=== PATIENT | male | born 1950 | race Caucasian/White ===

== ENCOUNTER 2017-08-30 11:53 | Observation (INO) | payer MEDICARE, MEDICAID ==
[~2017-08-30] VITALS: Ht 170.2 cm; Wt 65.0 kg
[2017-08-30] MEDS ORDERED: FEXO180T87 PO (12:08)
[2017-08-30 12:12] VITALS: BP 104/86
[2017-08-30] MEDS ORDERED: SODIUM CHLORIDE 0.9% 1,000 ML IV ONE (12:32)
[2017-08-30 13:00] LABS: CHLORIDE 107 mEq/L (98-107)
[2017-08-30 13:01] LABS: INR 1.1; PROTHROMBIN TIME 11.5 sec (9.4-11.6)
[2017-08-30 13:30] LABS: BASOPHILS % 0.5 % (0.0-2.0); EOSINOPHILS % 0.3 % (0.0-5.0); HEMATOCRIT. 39.2 % (42.0-52.0); LYMPHOCYTES % 13.8 % (20.0-50.0); MEAN CORPUSCULAR HEMOGLOBIN 31.7 pg (28.0-32.0); MEAN CORPUSCULAR VOLUME 89.9 fL (80.0-94.0); MEAN PLATELET VOLUME 7.6 fl (7.4-10.4); MONOCYTES % 6.2 % (2.0-8.0); NEUTROPHILS % 79.2 % (40.0-76.0); PLATELET 216 x1000/uL (130-400); RED BLOOD CELL COUNT 4.35 mill/uL (4.7-6.1); RED CELL DISTRIBUTION WIDTH 14.1 % (11.6-14.6)
[2017-08-30 13:38] LABS: HEMOGLOBIN. 13.8 g/dL (14.0-18.0)
[2017-08-30] MEDS ORDERED: TROPICAMIDE 1% OPHTH DROPS 15ML ONE (14:49)
[2017-08-30] MEDS ORDERED: TETRACAINE 0.5% OPHTH DROPS 4ML ONE (14:49)
[2017-08-30] MEDS ORDERED: PHENYLEPHRINE HCL 2.5% OPHTH DROPS 2ML ONE (14:49)
[2017-08-30] MEDS ORDERED: ACETYLCHOLINE CHLORIDE INTRAOCULAR SOLUTION 1:100 ELECTROLYTE DILUENT IO ONE (14:49)
[2017-08-30] MEDS ORDERED: BALANCED SALT IRRIG SOLN 15ML ONE (14:49)
[2017-08-30] MEDS ORDERED: CARB1TAB5 PO (15:59)
[2017-08-30] MEDS ORDERED: BUDE6.9H INH (15:59)
[2017-08-30] MEDS ORDERED: FLUT9.9S NS (15:59)
[2017-08-30] MEDS ORDERED: TRIH2TAB4 PO (15:59)
[2017-08-30] MEDS ORDERED: FOLI-43 PO (15:59)
[2017-08-30] MEDS ORDERED: RISP1 PO (15:59)
== END 2017-08-30 17:30 ==
LOC: ER 12:59 → ORIP 13:00 → ER 13:24
PROVIDERS: ADMIT Ophthalmology; ATTEND Ophthalmology
DX: H25.11 Age-related nuclear cataract, right eye (principal); R42 Dizziness and giddiness; F20.9 Schizophrenia, unspecified; J44.9 Chronic obstructive pulmonary disease, unspecified; F32.9 Major depressive disorder, single episode, unspecified; F41.9 Anxiety disorder, unspecified; D64.9 Anemia, unspecified; G20 Parkinson's disease
CPT/HCPCS: 36415; 66984; 80053; 83735; 85025; 85610; 93005; 99285; G0378; J3490; J7030; V2632; J1580; J2704; J2920

== ENCOUNTER 2017-11-04 14:57 | Emergency (ER) | payer MEDICAID, MEDICARE ==
[~2017-11-04] VITALS: Ht 162.6 cm; Wt 65.0 kg
[~2017-11-04 14:57] MED LIST: BUDE6.9H INH; CARB1TAB5 PO; FEXO180T87 PO; FLUT9.9S NS; FOLI-43 PO; RISP1 PO; TRIH2TAB4 PO
[2017-11-04] MEDS ORDERED: LORAZEPAM 0.5MG TABLET PO ONE (17:00)
[2017-11-04] MEDS ORDERED: RISPERIDONE 0.5MG TABLET PO SCH (17:00)
[2017-11-04 17:55] LABS: BASOPHILS % 0.7 % (0.0-2.0); HEMATOCRIT. 38.9 % (42.0-52.0); HEMOGLOBIN. 13.9 g/dL (14.0-18.0); LYMPHOCYTES % 17.1 % (20.0-50.0); MEAN CORPUSCULAR HEMOGLOBIN 31.5 pg (28.0-32.0); MEAN PLATELET VOLUME 7.1 fl (7.4-10.4); MONOCYTES % 7.9 % (2.0-8.0); NEUTROPHILS % 73.3 % (40.0-76.0); PLATELET 184 x1000/uL (130-400); RED BLOOD CELL COUNT 4.42 mill/uL (4.7-6.1); RED CELL DISTRIBUTION WIDTH 14.3 % (11.6-14.6)
[2017-11-04 17:57] LABS: CHLORIDE 106 mEq/L (98-107)
[2017-11-04 18:06] LABS: INR 1.1; PROTHROMBIN TIME 11.4 sec (9.4-11.6)
[2017-11-04 22:03] VITALS: BP 141/71
== END 2017-11-04 22:06 | disposition home or self-care (01) ==
LOC: ER 16:55
DX: M94.0 Chondrocostal junction syndrome [Tietze] (principal); E86.0 Dehydration; D72.810 Lymphocytopenia; D64.9 Anemia, unspecified; F41.9 Anxiety disorder, unspecified; F32.9 Major depressive disorder, single episode, unspecified; J44.9 Chronic obstructive pulmonary disease, unspecified; G20 Parkinson's disease; R26.9 Unspecified abnormalities of gait and mobility
CPT/HCPCS: 36415; 71045; 80053; 83036; 83880; 84484; 85025; 85610; 93005; 99285

== ENCOUNTER 2024-06-16 08:02 | Emergency (ER) | payer MEDICARE, MEDICAID ==
[~2024-06-16] VITALS: Ht 182.9 cm; Wt 68.0 kg
[~2024-06-16 08:02] MED LIST changes: +ATOR20TA65 PO; +CARV6.2548 PO; -FEXO180T87 PO; -FLUT9.9S NS; +GLYC30DR4 EACHEYE; +LEVO25TA7 PO; +LORA-250 PO; +LORA2TAB95 PO; +MULT-1223 PO; +PALI234D IM; +SENN-362 PO; +TRIH2TAB3 PO; -TRIH2TAB4 PO
[2024-06-16 08:03] VITALS: BP 143/66; PULSE 63; RESP 18; TEMP 36.8; O2SAT 100
== END 2024-06-16 10:10 | disposition left against medical advice (07) ==
LOC: ER 08:02 → CANBEDREQ 11:51
DX: R07.89 Other chest pain (principal); F41.9 Anxiety disorder, unspecified; J45.909 Unspecified asthma, uncomplicated; F31.9 Bipolar disorder, unspecified; Z88.8 Allergy status to other drugs, medicaments and biological substances; Z79.899 Other long term (current) drug therapy; Z91.048 Other nonmedicinal substance allergy status
CPT/HCPCS: 93005; 99283